=== PATIENT | male | born 1990 | race Caucasian/White ===

== ENCOUNTER 2019-09-13 02:23 | Emergency (ER) | payer MEDICAID ==
[~2019-09-13] VITALS: Ht 172.7 cm; Wt 104.3 kg
[2019-09-13 02:43] VITALS: BP_SYST 145
--- NOTE | 2019-09-13 05:00 | NUR ---
Patient left without being seen. ER MD aware
--- NOTE | 2019-09-13 05:00 | NUR ---
Clled in, no answer
== END 2019-09-13 05:00 | disposition left against medical advice (07) ==
LOC: SED 02:23
DX: M25.512 Pain in left shoulder (principal); Z53.21 Procedure and treatment not carried out due to patient leaving prior to being seen by health care provider
CPT/HCPCS: 73030

== ENCOUNTER 2020-07-22 02:57 | Emergency (ER) | payer MEDICAID ==
[~2020-07-22] VITALS: Ht 170.2 cm; Wt 99.8 kg
[2020-07-22 03:02] VITALS: BP_SYST 141; BP_SYST 5
--- NOTE | 2020-07-22 03:04 | NUR ---
Patient to ER bed 8 to gown for evaluation. Side rails up. Report given to MIGUELITO DOBBINS.
--- NOTE | 2020-07-22 03:13 | NUR ---
pt a&o x4 c/o of left eye redness swelling and discomfort x1 week. pt reports about a week ago washing his face and then accidentally scraping his eye with a towel when drying off. since then his eye has been red, swollen, and watering a lot. pt denies discharge or pain. pt has been using artifical drops.
--- NOTE | 2020-07-22 03:29 | NUR ---
ER Dr. Garcia at bedside examining patient.
[2020-07-22 03:43] VITALS: BP_SYST 135
--- NOTE | 2020-07-22 03:43 | NUR ---
Patient given written and verbal discharge instructions and verbalizes understanding. ER MD discussed with patient the results and treatment provided. Patient in stable condition. ID arm band removed. Rx of ketorlac and bleph given. Patient educated on pain management and to follow up with PMD. Pain Scale 0/10. Opportunity for questions provided and answered. Medication side effect fact sheet provided.
== END 2020-07-22 03:43 | disposition home or self-care (01) ==
LOC: SED 02:57
DX: H10.9 Unspecified conjunctivitis (principal); R03.0 Elevated blood-pressure reading, without diagnosis of hypertension
CPT/HCPCS: 99283